=== PATIENT | female | born 1990 | race Caucasian/White ===

== ENCOUNTER 2016-04-18 12:00 | Emergency (ER) | payer OTHER ==
[~2016-04-18 12:00] MED LIST: HYDR25T PO; MULTCAP PO; NUVAMIS2 VA; XANA0.5T PO; ZOLO50TA PO
[2016-04-18] MEDS ORDERED: TRIMETHOBENZAMIDE HCL INJ 200 MG/2 ML VIAL (J3250) As Ordered ONE (12:54)
[2016-04-18 13:36] LABS: BASO % 0.3 % (0.0-1.0); EOS % 0.2 % (0.0-3.0); LARGE UNSTAINED CELL # 0.2 K/mm3 (0.0-0.4); LARGE UNSTAINED CELL % 1.3 % (0.0-4.0); LYMPH # 1.3 K/mm3 (1.5-6.5); LYMPH % 11.1 % (24.0-44.0); MEAN CORPUSCULAR HEMOGLOBIN 29.9 pg (27.0-33.0); MEAN CORPUSCULAR HGB CONC 34.2 g/dl (32.0-36.5); MEAN CORPUSCULAR VOLUME 87.4 fl (80.0-96.0); MONO # 0.3 K/mm3 (0.0-0.8); MONO % 2.2 % (0.0-5.0); NEUTROPHILS # 10.3 K/mm3 (1.8-7.7); PLATELET COUNT, AUTOMATED 335 k/mm3 (150-450); RED CELL DISTRIBUTION WIDTH 12.2 % (11.5-14.5); WHITE BLOOD COUNT 12.1 K/mm3 (4.0-10.0)
[2016-04-18 13:47] LABS: ALBUMIN 4.1 GM/DL (3.2-5.2); ALBUMIN/GLOBULIN RATIO 1.03 (1.00-1.93); ALKALINE PHOSPHATASE 48 U/L (45-117); ALT/SGPT 29 U/L (12-78); AMYLASE 65 U/L (25-115); ANION GAP 18 MEQ/L (8-16); AST/SGOT 32 U/L (15-37); BILIRUBIN,DIRECT 0.2 MG/DL (0.0-0.2); BILIRUBIN,TOTAL 0.7 MG/DL (0.2-1.0); BLOOD UREA NITROGEN 10 MG/DL (7-18); CALCIUM LEVEL 8.5 MG/DL (8.5-10.1); CARBON DIOXIDE LEVEL 19 MEQ/L (21-32); CHLORIDE LEVEL 107 MEQ/L (98-107); CREATININE FOR GFR 0.97 MG/DL (0.55-1.02); GLOMERULAR FILTRATION RATE > 60.0 (>60); GLUCOSE, FASTING 75 MG/DL (70-105); HCG, SERUM QUANTITATIVE < 1.0 MIU/ML; POTASSIUM SERUM 3.5 MEQ/L (3.5-5.1); SODIUM LEVEL 144 MEQ/L (136-145); TOTAL PROTEIN 8.1 GM/DL (6.4-8.2)
--- NOTE | 2016-04-18 15:02 | EDDOCDS ---
Nurse's Notes [facility] Name: Dania Batres Age: 25 yrs Sex: Female : 1990 Arrival Date: 04/18/2016 Time: 12:00 Bed I4 / M4 Private MD: Jill Garcia FNP Diagnosis: Nausea with vomiting, unspecified;Diarrhea, unspecified Presentation: 04/18 12:13 Presenting complaint: Patient states: lots of puking since 6am. my guts hurts- pain srm started after vomiting. emesis is brown in color. symptoms actually started Thursday went away and returned. Adult Sepsis Screening: The patient does not have new or worsening altered mentation. Patient's respiratory rate is less than 22. Systolic blood pressure is greater than 100. Patient has a qSOFA score of 0- Negative Sepsis Screen. Suicide/Homicide risk assessment- the patient denies having any suicidal and/or homicidal ideations and does not present with any other emotional, behavioral or mental health complaints. Status: Patient is not a banking services advisor or dependent. Transition of care: patient was not received from another setting of care. 12:13 Acuity: MELANY Level 3 srm 12:13 Method Of Arrival: Walkin/Carried/Asstd srm Triage Assessment: 12:15 General: Appears uncomfortable, Behavior is appropriate for age, cooperative. Pain: srm Pain currently is 6 out of 10 on a pain scale. HIV screening NA for this visit Offered previously. 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 Celexa Unknown Oral once daily 2. NuvaRing 0.12-0.015 mg/24 hr vaginal ring 1 vaginal ring once moly - PMHx: Anxiety; Depression; - PSHx: wisdom teeth; - Social history: Smoking status: Patient states was never smoker of tobacco. No barriers to communication noted, The patient speaks fluent Tongan, Speaks appropriately for age. - Family history: Not pertinent. - : The pt / caregiver states he / she is not on anticoagulants. Home medication list is obtained from the patient. - Exposure Risk Screening:: None identified. Screenin:49 Screening information is obtained from the patient. Fall risk: No risks identified. kc3 Assistance ADL's: requires no assistance with activities of daily living. Abuse/DV Screen: The patient / caregiver reports he/she is: not in a situation that causes fear, pain or injury. Nutritional screening: No deficits noted. home support is adequate. 15:00 Advance Directives: Currently, there is no health care proxy. kc3 Assessment: 12:48 General: Appears ill, Behavior is appropriate for age, cooperative. Pain: Location: kc3 abdomen. Neurological: Level of Consciousness is awake, alert, obeys commands, Oriented to person, place, time. Respiratory: Respiratory effort is even, unlabored. GI: Abdomen is flat, Pt is actively vomiting undigested food, Reports diarrhea, nausea, vomiting. Derm: Skin is pink, warm & dry. Musculoskeletal: Circulation, motion, and sensation intact. 14:36 General: Appears reluctantly produced urine specimen. PO fluids initiated and consumed jmk readily without vomiting. Strongly encouraged small frequent amounts of clear liquids ..sips only. appears NAD. ambulated with steady gait. Immature presentation.. 14:59 General: Appears in no apparent distress, comfortable, Behavior is appropriate for age, kc3 cooperative. Neurological: Level of Consciousness is awake, alert, obeys commands, Oriented to person, place, time. Respiratory: Respiratory effort is even, unlabored. GI: Bowel sounds present X 4 quads. Abd is soft and non tender Abd is soft. Derm: Skin is pink, warm & dry. Musculoskeletal: Circulation, motion, and sensation intact. Vital Signs: 12:02 BP 151 / 69; Pulse 92; Resp 18; Temp 98.0; Pulse Ox 99% on R/A; Weight 58.97 kg (R); ct3 Height 5 ft. 6 in. (167.64 cm) (R); Pain 6/10; 14:59 BP 107 / 57; Pulse 78; Resp 18; Temp 97.8(O); Pulse Ox 100% on R/A; Pain 0/10; jb5 12:02 Body Mass Index 20.98 (58.97 kg, 167.64 cm) ct3 Vitals: 12:02 Log In Time: April 18, 2016 at 11:59. ct3 ED Course: 12:01 Patient visited by Donna Chacko PCA. ct3 12:01 Jill Garcia is Private Physician. ct3 12:01 Patient moved to Waiting ct3 12:03 Patient moved to Pre RCE ct3 12:14 Triage Initiated srm 12:30 Patient moved to Triage 1 dy 12:32 Patient moved to I4 / M4 dy 12:35 Patient visited by Lore Berg PCA. jb5 12:44 Yasmeen Hoff PA-C is PHCP. dt4 12:44 Shantal Oliva MD is Attending Physician. dt4 12:44 Patient visited by Yasmeen Hoff PA-C. dt4 12:49 Inserted saline lock: 20 gauge in right antecubital area and blood collected. The kc3 patient tolerated the procedure well. Labs drawn. (by ED staff). Sent per order to lab. 12:50 The patient / caregiver is instructed regarding the plan of care and ED course. kc3 13:00 Hcg, Serum Quantitative Sent. jmk 13:00 Amylase Sent. jmk 13:00 Basic Metabolic Profile Sent. jmk 13:00 CBC with Diff Sent. jmk 13:00 Lipase Sent. jmk 13:00 Liver Profile Sent. jmk 13:06 [facility] Payment Agreement was scanned into [employer] and attached to record. lg 14:02 Patient visited by Kerry Rogers. nb2 14:25 Urinalysis Sent. nb2 14:25 Urine Culture Sent. nb2 14:59 Patient visited by Lore Berg PCA. jb5 15:00 Discontinued IV lock intact, bleeding controlled, pressure dressing applied, No kc3 redness/swelling at site. No procedures done that require assistance. Administered Medications: 12:47 Drug: NS 0.9% 1000 ml [sodium chloride 0.9 % intravenous solution] Route: IV; Rate: kc3 bolus; Site: right antecubital; 12:57 Drug: Tigan 200 mg [Tigan 100 mg/mL intramuscular solution (2 mL)] Route: IM; Site: k right gluteus; 14:35 Drug: NS 0.9% 500 ml Route: IV; Rate: bolus; Site: right antecubital; k Order Results: Lab Order: Amylase; SPEC'M 04/18/16 12:46 Test: AMYLASE; Value: 65; Range: 25-115; Units: U/L; Status: F Lab Order: Basic Metabolic Profile; SPEC'M 04/18/16 12:46 Test: GLUCOSE, FASTING; Value: 75; Range: 70-105; Units: MG/DL; Status: F Test: BLOOD UREA NITROGEN; Value: 10; Range: 7-18; Units: MG/DL; Status: F Test: CREATININE FOR GFR; Value: 0.97; Range: 0.55-1.02; Units: MG/DL; Status: F Test: GLOMERULAR FILTRATION RATE; Value: > 60.0; Range: >60; Status: F Test: SODIUM LEVEL; Value: 144; Range: 136-145; Units: MEQ/L; Status: F Test: POTASSIUM SERUM; Value: 3.5; Range: 3.5-5.1; Units: MEQ/L; Status: F Test: CHLORIDE LEVEL; Value: 107; Range: 98-107; Units: MEQ/L; Status: F Test: CARBON DIOXIDE LEVEL; Value: 19; Range: 21-32; Abnormal: Below low normal; Units: MEQ/L; Status: F Test: ANION GAP; Value: 18; Range: 8-16; Abnormal: Above high normal; Units: MEQ/L; Status: F Test: CALCIUM LEVEL; Value: 8.5; Range: 8.5-10.1; Units: MG/DL; Status: F Test Note: ; Units are mL/min/1.73 m2 Chronic Kidney Disease Staging per NKF: Stage I & II GFR >=60 Normal to Mildly Decreased Stage III GFR 30-59 Moderately Decreased Stage IV GFR 15-29 Severely Decreased Stage V GFR <15 Very Little GFR Left ESRD GFR <15 on PENSION EXAMINER Lab Order: CBC with Diff; SPEC'M 04/18/16 12:46 Test: WHITE BLOOD COUNT; Value: 12.1; Range: 4.0-10.0; Abnormal: Above high normal; Units: K/mm3; Status: F Test: RED BLOOD COUNT; Value: 4.62; Range: 4.00-5.40; Units: M/mm3; Status: F Test: HEMOGLOBIN; Value: 13.8; Range: 12.0-16.0; Units: g/dl; Status: F Test: HEMATOCRIT; Value: 40.4; Range: 36.0-47.0; Units: %; Status: F Test: MEAN CORPUSCULAR VOLUME; Value: 87.4; Range: 80.0-96.0; Units: fl; Status: F Test: MEAN CORPUSCULAR HEMOGLOBIN; Value: 29.9; Range: 27.0-33.0; Units: pg; Status: F Test: MEAN CORPUSCULAR HGB CONC; Value: 34.2; Range: 32.0-36.5; Units: g/dl; Status: F Test: RED CELL DISTRIBUTION WIDTH; Value: 12.2; Range: 11.5-14.5; Units: %; Status: F Test: PLATELET COUNT, AUTOMATED; Value: 335; Range: 150-450; Units: k/mm3; Status: F Test: NEUTROPHILS %; Value: 85.0; Range: 36.0-66.0; Abnormal: Above high normal; Units: %; Status: F Test: LYMPH %; Value: 11.1; Range: 24.0-44.0; Abnormal: Below low normal; Units: %; Status: F Test: MONO %; Value: 2.2; Range: 0.0-5.0; Units: %; Status: F Test: EOS %; Value: 0.2; Range: 0.0-3.0; Units: %; Status: F Test: BASO %; Value: 0.3; Range: 0.0-1.0; Units: %; Status: F Test: LARGE UNSTAINED CELL %; Value: 1.3; Range: 0.0-4.0; Units: %; Status: F Test: NEUTROPHILS #; Value: 10.3; Range: 1.8-7.7; Abnormal: Above high normal; Units: K/mm3; Status: F Test: LYMPH #; Value: 1.3; Range: 1.5-6.5; Abnormal: Below low normal; Units: K/mm3; Status: F Test: MONO #; Value: 0.3; Range: 0.0-0.8; Units: K/mm3; Status: F Test: EOS #; Value: 0.0; Range: 0.0-0.50; Units: K/mm3; Status: F Test: BASO #; Value: 0.0; Range: 0.0-0.2; Units: K/mm3; Status: F Test: LARGE UNSTAINED CELL #; Value: 0.2; Range: 0.0-0.4; Units: K/mm3; Status: F Lab Order: Lipase; SPEC'M 04/18/16 12:46 Test: LIPASE; Value: 138; Range: 73-393; Units: U/L; Status: F Lab Order: Liver Profile; SPEC' 04/18/16 12:46 Test: AST/SGOT; Value: 32; Range: 15-37; Units: U/L; Status: F Test: ALT/SGPT; Value: 29; Range: 12-78; Units: U/L; Status: F Test: ALKALINE PHOSPHATASE; Value: 48; Range: 45-117; Units: U/L; Status: F Test: BILIRUBIN,TOTAL; Value: 0.7; Range: 0.2-1.0; Units: MG/DL; Status: F Test: BILIRUBIN,DIRECT; Value: 0.2; Range: 0.0-0.2; Units: MG/DL; Status: F Test: TOTAL PROTEIN; Value: 8.1; Range: 6.4-8.2; Units: GM/DL; Status: F Test: ALBUMIN; Value: 4.1; Range: 3.2-5.2; Units: GM/DL; Status: F Test: ALBUMIN/GLOBULIN RATIO; Value: 1.03; Range: 1.00-1.93; Status: F Lab Order: Urinalysis; [facility]' 04/18/16 14:23 Test: APPEARANCE, URINE; Value: CLEAR; Range: CLEAR; Status: F Test: COLOR, URINE; Value: YELLOW; Range: YELLOW; Status: F Test: PH,URINE; Value: 5.0; Range: 5.0-9.0; Units: UNITS; Status: F Test: SPECIFIC GRAVITY URINE AUTO; Value: 1.021; Range: 1.002-1.035; Status: F Test: PROTEIN, URINE AUTO; Value: 1+; Range: NEGATIVE; Abnormal: Above high normal; Units: mg/dL; Status: F Test: GLUCOSE, URINE (UA) AUTO; Value: NEGATIVE; Range: NEGATIVE; Units: mg/dL; Status: F Test: KETONE, URINE AUTO; Value: 2+; Range: NEGATIVE; Abnormal: Above high normal; Units: mg/dL; Status: F Test: UROBILINOGEN, URINE AUTO; Value: 0.2; Range: 0.0-2.0; Units: mg/dL; Status: F Test: BILIRUBIN, URINE AUTO; Value: NEGATIVE; Range: NEGATIVE; Status: F Test: NITRITE, URINE AUTO; Value: NEGATIVE; Range: NEGATIVE; Status: F Test: LEUKOCYTE ESTERASE, URINE AUTO; Value: NEGATIVE; Range: NEGATIVE; Status: F Test: BLOOD, URINE BLOOD; Value: 1+; Range: NEGATIVE; Abnormal: Above high normal; Status: F Test: WBC, URINE AUTO; Value: 1; Range: 0-3; Units: /HPF; Status: F Test: RBC, URINE AUTO; Value: 2; Range: 0-3; Units: /HPF; Status: F Test: BACTERIA, URINE AUTO; Value: NEGATIVE; Range: NEGATIVE; Status: F Test: SQUAMOUS EPITHELIAL CELL UR AU; Value: 1; Range: 0-6; Units: /HPF; Status: F Test: MUCUS, URINE; Value: SMALL; Range: NEGATIVE; Status: F Test: HYALINE CAST, URINE AUTO; Value: 0; Range: 0-1; Units: /LPF; Status: F Lab Order: Hcg, Serum Quantitative; SPEC'M 04/18/16 12:46 Test: HCG, SERUM QUANTITATIVE; Value: < 1.0; Units: MIU/ML; Status: F Test Note: ; GESTATIONAL AGE APPROXIMATE HCG RANGE (MIU/ML) 0.2-1 WEEK 5-50 1-2 WEEKS 50-500 2-3 WEEKS 100-5,000 3-4 WEEKS 500-10,000 4-5 WEEKS 1,000-50,000 5-6 WEEKS 10,000-100,000 6-8 WEEKS 15,000-200,000 2-3 MONTHS 10,000-100,000 NON FEMALES LESS THAN 3.0 Patient samples may contain human heterophilic antibodies that could react with immunoassays to give falsely elevated or depressed results. This assay has been designed to minimize interference from heterophilic antibodies. Elevated hCG levels have also been associated with trophoblastic disease and nontrophoblastic neoplasms. The possibility of having these diseases should be considered before a diagnosis of is made. This test is not intended for use as a surrogate marker for aiding in the diagnosis or monitoring the treatment of cancer patients. [employer] [place] methodology. Outcome: 14:51 Discharge ordered by Provider. dt4 15:00 Discharge Assessment: Patient awake, alert and oriented x 3. No cognitive and/or kc3 functional deficits noted. Patient verbalized understanding of disposition instructions. patient administered narcotics - no. The following High Risk Discharge criteria are identified: None. Condition: stable. Discharge instructions given to patient, Instructed on discharge instructions, follow up and referral plans. medication usage, Demonstrated understanding of instructions, medications, Pt was receptive of discharge instructions/ teaching. Prescriptions given X 1. Property :Personal belongings accompany Pt. 15:01 No special radiology studies were completed. kc3 15:01 Patient left the ED. kc3 Signatures: Juvenal Olmedo,RN RN Kenya Jimenes, RN RN Roberta Bragg, Miguel Reg lg Tucker Grimm, RN RN Lore Dixon, SUPERVISOR LABOR GANG SUPERVISOR LABOR GANG jb5 Donna Chacko, SUPERVISOR LABOR GANG SUPERVISOR LABOR GANG ct3 Yasmeen Hoff, PA-C PA-C dt4 Marcelina De Los Santos,RN RN kc3 Kerry Rogers nb2 Corrections: (The following items were deleted from the chart) 12:48 12:47 NS 0.9% 1000 ml IV at bolus in left antecubital kc3 kc3 MTDD
--- NOTE | 2016-04-18 15:02 | EDDOCDS ---
Physician Documentation [facility] Name: Dania Batres Age: 25 yrs Sex: Female : 1990 Arrival Date: 04/18/2016 Time: 12:00 Bed I4 / M4 Private MD: Jill Garcia FNP Disposition: 04/18/16 14:51 Discharged to Home/Self Care. Impression: Nausea with vomiting, unspecified, Diarrhea, unspecified. - Condition is Stable. - Discharge Instructions: Diarrhea, Nausea and Vomiting. - Prescriptions for Tigan 300 mg Oral Capsule - take 1 capsule by ORAL route every 12 hours As needed; 30 capsule. - Medication Reconciliation, Local Pharmacy Hours form. - Follow up: Emergency Department; When: As needed; Reason: Worsening of conditions. Follow up: Private Physician; When: 2 - 3 days; Reason: Wound/Symptom Recheck, Recheck today's complaints, Continuance of care. - Problem is new. - Symptoms have improved. Historical: - Allergies: no known allergies; - Home Meds: 1. Celexa Unknown Oral once daily 2. NuvaRing 0.12-0.015 mg/24 hr vaginal ring 1 vaginal ring once moly - PMHx: Anxiety; Depression; - PSHx: wisdom teeth; - Social history: Smoking status: Patient states was never smoker of tobacco. No barriers to communication noted, The patient speaks fluent Sierra Leonean, Speaks appropriately for age. - Family history: Not pertinent. - : The pt / caregiver states he / she is not on anticoagulants. Home medication list is obtained from the patient. - Exposure Risk Screening:: None identified. CLINIC MGR: 04/18 12:15 LMP 03/25/2016 srm Vital Signs: 12:02 BP 151 / 69; Pulse 92; Resp 18; Temp 98.0; Pulse Ox 99% on R/A; Weight 58.97 kg / ct3 130.01 lbs (R); Height 5 ft. 6 in. (167.64 cm) (R); Pain 6/10; 14:59 BP 107 / 57; Pulse 78; Resp 18; Temp 97.8(O); Pulse Ox 100% on R/A; Pain 0/10; jb5 12:02 Body Mass Index 20.98 (58.97 kg, 167.64 cm) ct3 MDM: 12:45 IV Saline Lock ordered. dt4 12:45 NS 0.9% 1000 ml IV at bolus once ordered. dt4 12:47 Tigan 200 mg IM once ordered. dt4 12:58 NOTHING BY MOUTH+DIET ordered. EDMS 12:58 Amylase Ordered. EDMS 12:58 Basic Metabolic Profile Ordered. EDMS 12:58 CBC with Diff Ordered. EDMS 12:58 Lipase Ordered. EDMS 12:58 Liver Profile Ordered. EDMS 12:58 Urinalysis Ordered. EDMS 12:58 Hcg, Serum Quantitative Ordered. EDMS 12:58 Urine Culture Ordered. EDMS 13:05 Financial registration complete. lg 13:06 [facility] Payment Agreement was scanned into [employer] and attached to record. lg 14:08 NS 0.9% 500 ml IV at bolus once ordered. dt4 Administered Medications: 12:47 Drug: NS 0.9% 1000 ml [sodium chloride 0.9 % intravenous solution] Route: IV; Rate: kc3 bolus; Site: right antecubital; 12:57 Drug: Tigan 200 mg [Tigan 100 mg/mL intramuscular solution (2 mL)] Route: IM; Site: jmk right gluteus; 14:35 Drug: NS 0.9% 500 ml Route: IV; Rate: bolus; Site: right antecubital; jmk Signatures: Dispatcher [employer] Sentry Kenya Guillory, RN Roberta Chance, Reg Reg lg Yasmeen Hoff, PA-C PA-C dt4 Marcelina De Los Santos RN RN kc3 Knapp, Jean RN jmk The chart was reviewed and I authenticate all verbal orders and agree with the evaluation and treatment provided.Attachments: 13:06 [facility] Payment Agreement lg MTDD
--- NOTE | 2016-04-20 16:01 | EDDOCDS ---
Nurse's Notes [facility] Name: Dania Batres Age: 25 yrs Sex: Female : 1990 Arrival Date: 04/18/2016 Time: 12:00 Bed I4 / M4 Private MD: Jill Garcia FNP Diagnosis: Nausea with vomiting, unspecified;Diarrhea, unspecified Presentation: 04/18 12:13 Presenting complaint: Patient states: lots of puking since 6am. my guts hurts- pain srm started after vomiting. emesis is brown in color. symptoms actually started Thursday went away and returned. Adult Sepsis Screening: The patient does not have new or worsening altered mentation. Patient's respiratory rate is less than 22. Systolic blood pressure is greater than 100. Patient has a qSOFA score of 0- Negative Sepsis Screen. Suicide/Homicide risk assessment- the patient denies having any suicidal and/or homicidal ideations and does not present with any other emotional, behavioral or mental health complaints. Status: Patient is not a nutrition services associate or dependent. Transition of care: patient was not received from another setting of care. 12:13 Acuity: MELANY Level 3 srm 12:13 Method Of Arrival: Walkin/Carried/Asstd srm Triage Assessment: 12:15 General: Appears uncomfortable, Behavior is appropriate for age, cooperative. Pain: srm Pain currently is 6 out of 10 on a pain scale. HIV screening NA for this visit Offered previously. 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 Celexa Unknown Oral once daily 2. NuvaRing 0.12-0.015 mg/24 hr vaginal ring 1 vaginal ring once moly - PMHx: Anxiety; Depression; - PSHx: wisdom teeth; - Social history: Smoking status: Patient states was never smoker of tobacco. No barriers to communication noted, The patient speaks fluent Iranian, Speaks appropriately for age. - Family history: Not pertinent. - : The pt / caregiver states he / she is not on anticoagulants. Home medication list is obtained from the patient. - Exposure Risk Screening:: None identified. Screenin:49 Screening information is obtained from the patient. Fall risk: No risks identified. kc3 Assistance ADL's: requires no assistance with activities of daily living. Abuse/DV Screen: The patient / caregiver reports he/she is: not in a situation that causes fear, pain or injury. Nutritional screening: No deficits noted. home support is adequate. 15:00 Advance Directives: Currently, there is no health care proxy. kc3 Assessment: 12:48 General: Appears ill, Behavior is appropriate for age, cooperative. Pain: Location: kc3 abdomen. Neurological: Level of Consciousness is awake, alert, obeys commands, Oriented to person, place, time. Respiratory: Respiratory effort is even, unlabored. GI: Abdomen is flat, Pt is actively vomiting undigested food, Reports diarrhea, nausea, vomiting. Derm: Skin is pink, warm & dry. Musculoskeletal: Circulation, motion, and sensation intact. 14:36 General: Appears reluctantly produced urine specimen. PO fluids initiated and consumed jmk readily without vomiting. Strongly encouraged small frequent amounts of clear liquids ..sips only. appears NAD. ambulated with steady gait. Immature presentation.. 14:59 General: Appears in no apparent distress, comfortable, Behavior is appropriate for age, kc3 cooperative. Neurological: Level of Consciousness is awake, alert, obeys commands, Oriented to person, place, time. Respiratory: Respiratory effort is even, unlabored. GI: Bowel sounds present X 4 quads. Abd is soft and non tender Abd is soft. Derm: Skin is pink, warm & dry. Musculoskeletal: Circulation, motion, and sensation intact. Vital Signs: 12:02 BP 151 / 69; Pulse 92; Resp 18; Temp 98.0; Pulse Ox 99% on R/A; Weight 58.97 kg (R); ct3 Height 5 ft. 6 in. (167.64 cm) (R); Pain 6/10; 14:59 BP 107 / 57; Pulse 78; Resp 18; Temp 97.8(O); Pulse Ox 100% on R/A; Pain 0/10; jb5 12:02 Body Mass Index 20.98 (58.97 kg, 167.64 cm) ct3 Vitals: 12:02 Log In Time: April 18, 2016 at 11:59. ct3 ED Course: 12:01 Patient visited by Donna Chacko PCA. ct3 12:01 Jill Garcia is Private Physician. ct3 12:01 Patient moved to Waiting ct3 12:03 Patient moved to Pre RCE ct3 12:14 Triage Initiated srm 12:30 Patient moved to Triage 1 dy 12:32 Patient moved to I4 / M4 dy 12:35 Patient visited by Lore Berg PCA. jb5 12:44 Yasmeen Hoff PA-C is PHCP. dt4 12:44 Shantal Oliva MD is Attending Physician. dt4 12:44 Patient visited by Yasmeen Hoff PA-C. dt4 12:49 Inserted saline lock: 20 gauge in right antecubital area and blood collected. The kc3 patient tolerated the procedure well. Labs drawn. (by ED staff). Sent per order to lab. 12:50 The patient / caregiver is instructed regarding the plan of care and ED course. kc3 13:00 Hcg, Serum Quantitative Sent. jmk 13:00 Amylase Sent. jmk 13:00 Basic Metabolic Profile Sent. jmk 13:00 CBC with Diff Sent. jmk 13:00 Lipase Sent. jmk 13:00 Liver Profile Sent. jmk 13:06 [facility] Payment Agreement was scanned into [employer] and attached to record. lg 14:02 Patient visited by Kerry Rogers. nb2 14:25 Urinalysis Sent. nb2 14:25 Urine Culture Sent. nb2 14:59 Patient visited by Lore Berg PCA. jb5 15:00 Discontinued IV lock intact, bleeding controlled, pressure dressing applied, No kc3 redness/swelling at site. No procedures done that require assistance. 04/19 09:22 T-Sheet-- Draft Copy was scanned into [employer] and attached to record. gb Administered Medications: 04/18 12:47 Drug: NS 0.9% 1000 ml [sodium chloride 0.9 % intravenous solution] Route: IV; Rate: kc3 bolus; Site: right antecubital; 12:57 Drug: Tigan 200 mg [Tigan 100 mg/mL intramuscular solution (2 mL)] Route: IM; Site: jmk right gluteus; 14:35 Drug: NS 0.9% 500 ml Route: IV; Rate: bolus; Site: right antecubital; jmk Order Results: Lab Order: Amylase; SPEC'M 04/18/16 12:46 Test: AMYLASE; Value: 65; Range: 25-115; Units: U/L; Status: F Lab Order: Basic Metabolic Profile; SPEC'M 04/18/16 12:46 Test: GLUCOSE, FASTING; Value: 75; Range: 70-105; Units: MG/DL; Status: F Test: BLOOD UREA NITROGEN; Value: 10; Range: 7-18; Units: MG/DL; Status: F Test: CREATININE FOR GFR; Value: 0.97; Range: 0.55-1.02; Units: MG/DL; Status: F Test: GLOMERULAR FILTRATION RATE; Value: > 60.0; Range: >60; Status: F Test: SODIUM LEVEL; Value: 144; Range: 136-145; Units: MEQ/L; Status: F Test: POTASSIUM SERUM; Value: 3.5; Range: 3.5-5.1; Units: MEQ/L; Status: F Test: CHLORIDE LEVEL; Value: 107; Range: 98-107; Units: MEQ/L; Status: F Test: CARBON DIOXIDE LEVEL; Value: 19; Range: 21-32; Abnormal: Below low normal; Units: MEQ/L; Status: F Test: ANION GAP; Value: 18; Range: 8-16; Abnormal: Above high normal; Units: MEQ/L; Status: F Test: CALCIUM LEVEL; Value: 8.5; Range: 8.5-10.1; Units: MG/DL; Status: F Test Note: ; Units are mL/min/1.73 m2 Chronic Kidney Disease Staging per NKF: Stage I & II GFR >=60 Normal to Mildly Decreased Stage III GFR 30-59 Moderately Decreased Stage IV GFR 15-29 Severely Decreased Stage V GFR <15 Very Little GFR Left ESRD GFR <15 on HYDROPULPER OPERATOR Lab Order: CBC with Diff; SPEC'M 04/18/16 12:46 Test: WHITE BLOOD COUNT; Value: 12.1; Range: 4.0-10.0; Abnormal: Above high normal; Units: K/mm3; Status: F Test: RED BLOOD COUNT; Value: 4.62; Range: 4.00-5.40; Units: M/mm3; Status: F Test: HEMOGLOBIN; Value: 13.8; Range: 12.0-16.0; Units: g/dl; Status: F Test: HEMATOCRIT; Value: 40.4; Range: 36.0-47.0; Units: %; Status: F Test: MEAN CORPUSCULAR VOLUME; Value: 87.4; Range: 80.0-96.0; Units: fl; Status: F Test: MEAN CORPUSCULAR HEMOGLOBIN; Value: 29.9; Range: 27.0-33.0; Units: pg; Status: F Test: MEAN CORPUSCULAR HGB CONC; Value: 34.2; Range: 32.0-36.5; Units: g/dl; Status: F Test: RED CELL DISTRIBUTION WIDTH; Value: 12.2; Range: 11.5-14.5; Units: %; Status: F Test: PLATELET COUNT, AUTOMATED; Value: 335; Range: 150-450; Units: k/mm3; Status: F Test: NEUTROPHILS %; Value: 85.0; Range: 36.0-66.0; Abnormal: Above high normal; Units: %; Status: F Test: LYMPH %; Value: 11.1; Range: 24.0-44.0; Abnormal: Below low normal; Units: %; Status: F Test: MONO %; Value: 2.2; Range: 0.0-5.0; Units: %; Status: F Test: EOS %; Value: 0.2; Range: 0.0-3.0; Units: %; Status: F Test: BASO %; Value: 0.3; Range: 0.0-1.0; Units: %; Status: F Test: LARGE UNSTAINED CELL %; Value: 1.3; Range: 0.0-4.0; Units: %; Status: F Test: NEUTROPHILS #; Value: 10.3; Range: 1.8-7.7; Abnormal: Above high normal; Units: K/mm3; Status: F Test: LYMPH #; Value: 1.3; Range: 1.5-6.5; Abnormal: Below low normal; Units: K/mm3; Status: F Test: MONO #; Value: 0.3; Range: 0.0-0.8; Units: K/mm3; Status: F Test: EOS #; Value: 0.0; Range: 0.0-0.50; Units: K/mm3; Status: F Test: BASO #; Value: 0.0; Range: 0.0-0.2; Units: K/mm3; Status: F Test: LARGE UNSTAINED CELL #; Value: 0.2; Range: 0.0-0.4; Units: K/mm3; Status: F Lab Order: Lipase; [facility]' 04/18/16 12:46 Test: LIPASE; Value: 138; Range: 73-393; Units: U/L; Status: F Lab Order: Liver Profile; SPEC' 04/18/16 12:46 Test: AST/SGOT; Value: 32; Range: 15-37; Units: U/L; Status: F Test: ALT/SGPT; Value: 29; Range: 12-78; Units: U/L; Status: F Test: ALKALINE PHOSPHATASE; Value: 48; Range: 45-117; Units: U/L; Status: F Test: BILIRUBIN,TOTAL; Value: 0.7; Range: 0.2-1.0; Units: MG/DL; Status: F Test: BILIRUBIN,DIRECT; Value: 0.2; Range: 0.0-0.2; Units: MG/DL; Status: F Test: TOTAL PROTEIN; Value: 8.1; Range: 6.4-8.2; Units: GM/DL; Status: F Test: ALBUMIN; Value: 4.1; Range: 3.2-5.2; Units: GM/DL; Status: F Test: ALBUMIN/GLOBULIN RATIO; Value: 1.03; Range: 1.00-1.93; Status: F Lab Order: Urinalysis; [facility]' 04/18/16 14:23 Test: APPEARANCE, URINE; Value: CLEAR; Range: CLEAR; Status: F Test: COLOR, URINE; Value: YELLOW; Range: YELLOW; Status: F Test: PH,URINE; Value: 5.0; Range: 5.0-9.0; Units: UNITS; Status: F Test: SPECIFIC GRAVITY URINE AUTO; Value: 1.021; Range: 1.002-1.035; Status: F Test: PROTEIN, URINE AUTO; Value: 1+; Range: NEGATIVE; Abnormal: Above high normal; Units: mg/dL; Status: F Test: GLUCOSE, URINE (UA) AUTO; Value: NEGATIVE; Range: NEGATIVE; Units: mg/dL; Status: F Test: KETONE, URINE AUTO; Value: 2+; Range: NEGATIVE; Abnormal: Above high normal; Units: mg/dL; Status: F Test: UROBILINOGEN, URINE AUTO; Value: 0.2; Range: 0.0-2.0; Units: mg/dL; Status: F Test: BILIRUBIN, URINE AUTO; Value: NEGATIVE; Range: NEGATIVE; Status: F Test: NITRITE, URINE AUTO; Value: NEGATIVE; Range: NEGATIVE; Status: F Test: LEUKOCYTE ESTERASE, URINE AUTO; Value: NEGATIVE; Range: NEGATIVE; Status: F Test: BLOOD, URINE BLOOD; Value: 1+; Range: NEGATIVE; Abnormal: Above high normal; Status: F Test: WBC, URINE AUTO; Value: 1; Range: 0-3; Units: /HPF; Status: F Test: RBC, URINE AUTO; Value: 2; Range: 0-3; Units: /HPF; Status: F Test: BACTERIA, URINE AUTO; Value: NEGATIVE; Range: NEGATIVE; Status: F Test: SQUAMOUS EPITHELIAL CELL UR AU; Value: 1; Range: 0-6; Units: /HPF; Status: F Test: MUCUS, URINE; Value: SMALL; Range: NEGATIVE; Status: F Test: HYALINE CAST, URINE AUTO; Value: 0; Range: 0-1; Units: /LPF; Status: F Lab Order: Urine Culture; [facility]' 04/18/16 14:23 Test: URINE CULTURE; Value: URINE CULTURE RESULT NO GROWTH CLINICAL SIGNIFICANCE 1 ORGANISM; Status: F Lab Order: Hcg, Serum Quantitative; SPEC' 04/18/16 12:46 Test: HCG, SERUM QUANTITATIVE; Value: < 1.0; Units: MIU/ML; Status: F Test Note: ; GESTATIONAL AGE APPROXIMATE HCG RANGE (MIU/ML) 0.2-1 WEEK 5-50 1-2 WEEKS 50-500 2-3 WEEKS 100-5,000 3-4 WEEKS 500-10,000 4-5 WEEKS 1,000-50,000 5-6 WEEKS 10,000-100,000 6-8 WEEKS 15,000-200,000 2-3 MONTHS 10,000-100,000 NON FEMALES LESS THAN 3.0 Patient samples may contain human heterophilic antibodies that could react with immunoassays to give falsely elevated or depressed results. This assay has been designed to minimize interference from heterophilic antibodies. Elevated hCG levels have also been associated with trophoblastic disease and nontrophoblastic neoplasms. The possibility of having these diseases should be considered before a diagnosis of is made. This test is not intended for use as a surrogate marker for aiding in the diagnosis or monitoring the treatment of cancer patients. [employer] [place] methodology. Outcome: 14:51 Discharge ordered by Provider. dt4 15:00 Discharge Assessment: Patient awake, alert and oriented x 3. No cognitive and/or kc3 functional deficits noted. Patient verbalized understanding of disposition instructions. patient administered narcotics - no. The following High Risk Discharge criteria are identified: None. Condition: stable. Discharge instructions given to patient, Instructed on discharge instructions, follow up and referral plans. medication usage, Demonstrated understanding of instructions, medications, Pt was receptive of discharge instructions/ teaching. Prescriptions given X 1. Property :Personal belongings accompany Pt. 15:01 No special radiology studies were completed. kc3 15:01 Patient left the ED. kc3 Signatures: Juvenal Olmedo,RN RN Kenya Jimenes, RN RN [facility] Esther, Stefany, Reg Reg gb Roberta Farrell, Reg Reg lg Tucker Grimm, RN RN Lore Dixon, CHAIRLIFT OPERATOR CHAIRLIFT OPERATOR jb5 Donna Chacko, CHAIRLIFT OPERATOR CHAIRLIFT OPERATOR ct3 Yasmeen Hoff, PA-C PA-C dt4 Marcelina De Los Santos,RN RN kc3 Kerry Rogers nb2 Corrections: (The following items were deleted from the chart) 12:48 12:47 NS 0.9% 1000 ml IV at bolus in left antecubital kc3 kc3 Chart Complete MTDD
--- NOTE | 2016-04-20 16:01 | EDDOCDS ---
Physician Documentation [facility] Name: Dania Batres Age: 25 yrs Sex: Female : 1990 Arrival Date: 04/18/2016 Time: 12:00 Bed I4 / M4 Private MD: Jill Garcia FNP Disposition: 04/18/16 14:51 Discharged to Home/Self Care. Impression: Nausea with vomiting, unspecified, Diarrhea, unspecified. - Condition is Stable. - Discharge Instructions: Diarrhea, Nausea and Vomiting. - Prescriptions for Tigan 300 mg Oral Capsule - take 1 capsule by ORAL route every 12 hours As needed; 30 capsule. - Medication Reconciliation, Local Pharmacy Hours form. - Follow up: Emergency Department; When: As needed; Reason: Worsening of conditions. Follow up: Private Physician; When: 2 - 3 days; Reason: Wound/Symptom Recheck, Recheck today's complaints, Continuance of care. - Problem is new. - Symptoms have improved. Historical: - Allergies: no known allergies; - Home Meds: 1. Celexa Unknown Oral once daily 2. NuvaRing 0.12-0.015 mg/24 hr vaginal ring 1 vaginal ring once moly - PMHx: Anxiety; Depression; - PSHx: wisdom teeth; - Social history: Smoking status: Patient states was never smoker of tobacco. No barriers to communication noted, The patient speaks fluent Syrian, Speaks appropriately for age. - Family history: Not pertinent. - : The pt / caregiver states he / she is not on anticoagulants. Home medication list is obtained from the patient. - Exposure Risk Screening:: None identified. HR RECRUITER: 04/18 12:15 LMP 03/25/2016 srm Vital Signs: 12:02 BP 151 / 69; Pulse 92; Resp 18; Temp 98.0; Pulse Ox 99% on R/A; Weight 58.97 kg / ct3 130.01 lbs (R); Height 5 ft. 6 in. (167.64 cm) (R); Pain 6/10; 14:59 BP 107 / 57; Pulse 78; Resp 18; Temp 97.8(O); Pulse Ox 100% on R/A; Pain 0/10; jb5 12:02 Body Mass Index 20.98 (58.97 kg, 167.64 cm) ct3 MDM: 12:45 IV Saline Lock ordered. dt4 12:45 NS 0.9% 1000 ml IV at bolus once ordered. dt4 12:47 Tigan 200 mg IM once ordered. dt4 12:58 NOTHING BY MOUTH+DIET ordered. EDMS 12:58 Amylase Ordered. EDMS 12:58 Basic Metabolic Profile Ordered. EDMS 12:58 CBC with Diff Ordered. EDMS 12:58 Lipase Ordered. EDMS 12:58 Liver Profile Ordered. EDMS 12:58 Urinalysis Ordered. EDMS 12:58 Hcg, Serum Quantitative Ordered. EDMS 12:58 Urine Culture Ordered. EDMS 13:05 Financial registration complete. lg 13:06 [facility] Payment Agreement was scanned into [employer] and attached to record. lg 14:08 NS 0.9% 500 ml IV at bolus once ordered. dt4 04/19 09:22 T-Sheet-- Draft Copy was scanned into [employer] and attached to record. gb Administered Medications: 04/18 12:47 Drug: NS 0.9% 1000 ml [sodium chloride 0.9 % intravenous solution] Route: IV; Rate: kc3 bolus; Site: right antecubital; 12:57 Drug: Tigan 200 mg [Tigan 100 mg/mL intramuscular solution (2 mL)] Route: IM; Site: jmk right gluteus; 14:35 Drug: NS 0.9% 500 ml Route: IV; Rate: bolus; Site: right antecubital; jmk Signatures: Dispatcher [employer] EDMS Kenya Richard, RAN TONG [facility] Stefany Santana, Reg Reg gb Roberta Farrell, Reg Reg lg Yasmeen Hoff, PA-Juan Manuel PA-C dt4 Marcelina De Los Santos RN RN kc3 Juvenal Olmedo RN The chart was reviewed and I authenticate all verbal orders and agree with the evaluation and treatment provided.Attachments: 13:06 [facility] Payment Agreement lg 04/19 09:22 T-Sheet-- Draft Copy gb Chart Complete MTDD
--- NOTE | 2016-04-20 16:01 | EDDOCDS ---
Physician Documentation [facility] Name: Dania Batres Age: 25 yrs Sex: Female : 1990 Arrival Date: 04/18/2016 Time: 12:00 Bed I4 / M4 Private MD: Jill Garcia FNP Disposition: 04/18/16 14:51 Discharged to Home/Self Care. Impression: Nausea with vomiting, unspecified, Diarrhea, unspecified. - Condition is Stable. - Discharge Instructions: Diarrhea, Nausea and Vomiting. - Prescriptions for Tigan 300 mg Oral Capsule - take 1 capsule by ORAL route every 12 hours As needed; 30 capsule. - Medication Reconciliation, Local Pharmacy Hours form. - Follow up: Emergency Department; When: As needed; Reason: Worsening of conditions. Follow up: Private Physician; When: 2 - 3 days; Reason: Wound/Symptom Recheck, Recheck today's complaints, Continuance of care. - Problem is new. - Symptoms have improved. Historical: - Allergies: no known allergies; - Home Meds: 1. Celexa Unknown Oral once daily 2. NuvaRing 0.12-0.015 mg/24 hr vaginal ring 1 vaginal ring once moly - PMHx: Anxiety; Depression; - PSHx: wisdom teeth; - Social history: Smoking status: Patient states was never smoker of tobacco. No barriers to communication noted, The patient speaks fluent [place], Speaks appropriately for age. - Family history: Not pertinent. - : The pt / caregiver states he / she is not on anticoagulants. Home medication list is obtained from the patient. - Exposure Risk Screening:: None identified. TRANSPORTATION DRIVER: 04/18 12:15 LMP 03/25/2016 srm Vital Signs: 12:02 BP 151 / 69; Pulse 92; Resp 18; Temp 98.0; Pulse Ox 99% on R/A; Weight 58.97 kg / ct3 130.01 lbs (R); Height 5 ft. 6 in. (167.64 cm) (R); Pain 6/10; 14:59 BP 107 / 57; Pulse 78; Resp 18; Temp 97.8(O); Pulse Ox 100% on R/A; Pain 0/10; jb5 12:02 Body Mass Index 20.98 (58.97 kg, 167.64 cm) ct3 MDM: 12:45 IV Saline Lock ordered. dt4 12:45 NS 0.9% 1000 ml IV at bolus once ordered. dt4 12:47 Tigan 200 mg IM once ordered. dt4 12:58 NOTHING BY MOUTH+DIET ordered. EDMS 12:58 Amylase Ordered. EDMS 12:58 Basic Metabolic Profile Ordered. EDMS 12:58 CBC with Diff Ordered. EDMS 12:58 Lipase Ordered. EDMS 12:58 Liver Profile Ordered. EDMS 12:58 Urinalysis Ordered. EDMS 12:58 Hcg, Serum Quantitative Ordered. EDMS 12:58 Urine Culture Ordered. EDMS 13:05 Financial registration complete. lg 13:06 [facility] Payment Agreement was scanned into [employer] and attached to record. lg 14:08 NS 0.9% 500 ml IV at bolus once ordered. dt4 04/19 09:22 T-Sheet-- Draft Copy was scanned into [employer] and attached to record. gb Administered Medications: 04/18 12:47 Drug: NS 0.9% 1000 ml [sodium chloride 0.9 % intravenous solution] Route: IV; Rate: kc3 bolus; Site: right antecubital; 12:57 Drug: Tigan 200 mg [Tigan 100 mg/mL intramuscular solution (2 mL)] Route: IM; Site: jmk right gluteus; 14:35 Drug: NS 0.9% 500 ml Route: IV; Rate: bolus; Site: right antecubital; jmk Signatures: Dispatcher [employer] EDMS Kenya Richard, RAN TONG [facility] Stefany Santana, Reg Reg gb Roberta Farrell, Reg Reg lg Yasmeen Hoff, PA-Juan Manuel PA-C dt4 Marcelina De Los Santos RN RN kc3 Juvenal Olmedo RN The chart was reviewed and I authenticate all verbal orders and agree with the evaluation and treatment provided.Attachments: 13:06 [facility] Payment Agreement lg 04/19 09:22 T-Sheet-- Draft Copy gb Chart Complete MTDD
== END 2016-04-18 15:01 | disposition home or self-care (01) ==
LOC: M ED 12:00
DX: R11.2 Nausea with vomiting, unspecified (principal); R19.7 Diarrhea, unspecified; F41.9 Anxiety disorder, unspecified; F32.9 Major depressive disorder, single episode, unspecified; Z79.3 Long term (current) use of hormonal contraceptives; Z79.899 Other long term (current) drug therapy
CPT/HCPCS: 36415; 80048; 80076; 81001; 82150; 83690; 84702; 85025; 87086; 96372; 99284; J3250

== ENCOUNTER 2016-12-14 10:15 | Emergency (ER) | payer MEDICAID, OTHER ==
[~2016-12-14] VITALS: Ht 167.6 cm; Wt 61.4 kg
[~2016-12-14 10:15] MED LIST changes: +HYDR-3363 PO; -HYDR25T PO
[2016-12-14 10:16] VITALS: BP 133/88
[2016-12-14] MEDS ORDERED: ATIV1TAB10 PO (11:37)
== END 2016-12-14 12:22 | disposition home or self-care (01) ==
LOC: M ED 10:15
DX: F41.9 Anxiety disorder, unspecified (principal); Z87.891 Personal history of nicotine dependence

== ENCOUNTER → 2017-04-16 | Outpatient (REF) | payer OTHER ==
[2017-04-16 14:56] LABS: CHLAMYDIA DNA AMPLIFICATION NEGATIVE (NEGATIVE); GC DNA AMPLIFICATION NEGATIVE (NEGATIVE)
== END ==
LOC: M SFHCWAGY 10:17
DX: Z12.4 Encounter for screening for malignant neoplasm of cervix (principal)

== ENCOUNTER → 2017-05-11 | Outpatient (REF) | payer OTHER | LOC: M SFHCWAGY 13:50 | DX: R87.810 Cervical high risk human papillomavirus (HPV) DNA test positive (principal); R87.612 Low grade squamous intraepithelial lesion on cytologic smear of cervix (LGSIL) ==

== ENCOUNTER → 2017-05-12 | Outpatient (REF) | payer OTHER | LOC: M LAB REF 18:55 | DX: J02.9 Acute pharyngitis, unspecified (principal) ==

== ENCOUNTER → 2017-07-21 | Outpatient (REF) | payer OTHER | LOC: M LAB REF 12:22 | DX: N30.01 Acute cystitis with hematuria (principal) ==

== ENCOUNTER → 2017-07-23 | Outpatient (REF) | payer OTHER ==
[2017-07-23 15:56] LABS: CHLAMYDIA DNA AMPLIFICATION NEGATIVE (NEGATIVE); GC DNA AMPLIFICATION NEGATIVE (NEGATIVE)
== END ==
LOC: M SFHCWAGY 12:57
DX: A60.04 Herpesviral vulvovaginitis (principal); N72 Inflammatory disease of cervix uteri; Z11.3 Encounter for screening for infections with a predominantly sexual mode of transmission; N89.8 Other specified noninflammatory disorders of vagina

== ENCOUNTER → 2018-04-15 | Outpatient (REF) | payer OTHER ==
[~2018-04-15] MED LIST changes: +ATIV1TAB10 PO
== END ==
LOC: M LAB REF 12:12
PROVIDERS: ATTEND Physician Assistant
DX: J02.9 Acute pharyngitis, unspecified (principal)

== ENCOUNTER → 2018-05-17 | Outpatient (REF) | payer OTHER ==
[2018-05-17 19:42] LABS: INFLUENZA A AMPLIFICATION POSITIVE (NEGATIVE); INFLUENZA B AMPLIFICATION NEGATIVE (NEGATIVE)
== END ==
LOC: M LAB REF 18:48
PROVIDERS: ATTEND Physician Assistant Medical
DX: J11.1 Influenza due to unidentified influenza virus with other respiratory manifestations (principal)

== ENCOUNTER → 2018-07-06 | Outpatient (REF) | payer OTHER ==
[2018-07-08 14:14] LABS: HPV HYBRID CAPTURE II Positive (Negative)
== END ==
LOC: M SFHCWAGY 08:42
PROVIDERS: ATTEND Nurse Practitioner Family
DX: R87.610 Atypical squamous cells of undetermined significance on cytologic smear of cervix (ASC-US) (principal)

== ENCOUNTER → 2018-07-30 | Outpatient (REF) | payer OTHER ==
[2018-07-30 14:26] LABS: HEMATOCRIT 38.8 % (36.0-47.0); MEAN CORPUSCULAR HEMOGLOBIN 30.3 pg (27.0-33.0); MEAN CORPUSCULAR HGB CONC 33.5 g/dl (32.0-36.5); MEAN CORPUSCULAR VOLUME 90.4 fl (80.0-96.0); PLATELET COUNT, AUTOMATED 294 10^3/uL (150-450); RED BLOOD COUNT 4.29 10^6/uL (4.00-5.40); WHITE BLOOD COUNT 10.3 10^3/uL (4.0-10.0)
[2018-07-30 14:57] LABS: ALBUMIN 4.5 GM/DL (3.2-5.2); ALT/SGPT 20 U/L (12-78); BILIRUBIN,TOTAL 1.1 MG/DL (0.2-1.0); BLOOD UREA NITROGEN 8 MG/DL (7-18); CALCIUM LEVEL 9.5 MG/DL (8.5-10.1); CARBON DIOXIDE LEVEL 24 MEQ/L (21-32); CHLORIDE LEVEL 106 MEQ/L (98-107); CHOLESTEROL LEVEL 176 MG/DL (<200); CHOLESTEROL RISK RATIO 1.872 (<5); CREATININE FOR GFR 0.93 MG/DL (0.55-1.30); GLOMERULAR FILTRATION RATE > 60.0 (>60); GLUCOSE, FASTING 76 MG/DL (70-100); HDL CHOLESTEROL 94 MG/DL (>40); IRON (FE) 115 UG/DL (50-170); LDL CHOLESTEROL 70 MG/DL (<100); NON-HDL-C 82 MG/DL; PERCENT SATURATION 21.3 % (13.2-45.0); POTASSIUM SERUM 3.4 MEQ/L (3.5-5.1); SODIUM LEVEL 140 MEQ/L (136-145); THYROID STIMULATING HORMONE 0.893 uIU/ML (0.358-3.740); TOTAL 25(OH) VITAMIN D 30.2 NG/ML (30.0-100.0); TOTAL IRON BINDING CAPACITY 540 UG/DL (250-450); TOTAL PROTEIN 7.6 GM/DL (6.4-8.2); TRIGLYCERIDES LEVEL 62 MG/DL (<150)
== END ==
LOC: M LAB REF 12:58
PROVIDERS: ATTEND Physician Assistant
DX: Z00.00 Encounter for general adult medical examination without abnormal findings (principal)

== ENCOUNTER → 2018-08-20 | Outpatient (REF) | payer OTHER | LOC: M SFHCWAGY 10:32 | PROVIDERS: ATTEND Family Medicine | DX: R87.610 Atypical squamous cells of undetermined significance on cytologic smear of cervix (ASC-US) (principal) ==

== ENCOUNTER → 2019-07-13 | Outpatient (REF) | payer OTHER | LOC: M SFHCWAGY 09:51 | PROVIDERS: ATTEND Nurse Practitioner Women's Health | DX: Z12.4 Encounter for screening for malignant neoplasm of cervix (principal); N87.0 Mild cervical dysplasia ==

== ENCOUNTER → 2020-08-14 | Outpatient (REF) | payer OTHER | LOC: M SFHCWAGY 12:51 | PROVIDERS: ATTEND Nurse Practitioner Women's Health | DX: Z12.4 Encounter for screening for malignant neoplasm of cervix (principal) ==

== ENCOUNTER → 2022-09-04 | Outpatient (REF) | payer MEDICAID, OTHER ==
[~2022-09-04] MED LIST changes: +ETON1VAG7 VA; -NUVAMIS2 VA
== END ==
LOC: M SFHCWAGY 13:19
PROVIDERS: ATTEND Nurse Practitioner Family
DX: Z12.4 Encounter for screening for malignant neoplasm of cervix (principal)

== ENCOUNTER → 2022-11-14 | Outpatient (REF) | payer OTHER, MEDICAID ==
[2022-11-14 17:23] LABS: BASO % 1.6 % (0.0-1.0); EOS % 0.4 % (0.0-3.0); HEMATOCRIT 41.2 % (36.0-47.0); HEMOGLOBIN 13.4 g/dl (12.0-15.5); LYMPH # 1.8 10^3/uL (1.5-5.0); LYMPH % 71.3 % (24.0-44.0); MEAN CORPUSCULAR HEMOGLOBIN 30.2 pg (27.0-33.0); MEAN CORPUSCULAR HGB CONC 32.5 g/dl (32.0-36.5); MEAN CORPUSCULAR VOLUME 92.8 fl (80.0-96.0); MONO # 0.5 10^3/uL (0.0-0.8); MONO % 21.5 % (2.0-8.0); NEUTROPHILS % 5.2 % (36.0-66.0); PLATELET COUNT, AUTOMATED 292 10^3/uL (150-450); RED BLOOD COUNT 4.44 10^6/uL (4.00-5.40); WHITE BLOOD COUNT 2.5 10^3/uL (4.0-10.0)
[2022-11-14 17:35] LABS: ALBUMIN 4.3 G/DL (3.2-5.2); ALKALINE PHOSPHATASE 46 U/L (46-116); ALT/SGPT 20 U/L (7.0-40); AST/SGOT 10 U/L (<34); BILIRUBIN,TOTAL 0.6 MG/DL (0.3-1.2); BLOOD UREA NITROGEN 12 MG/DL (9-23); CALCIUM LEVEL 9.6 MG/DL (8.5-10.1); CARBON DIOXIDE LEVEL 26 MMOL/L (20-31); CHLORIDE LEVEL 105 MMOL/L (98-107); CREATININE FOR GFR 0.81 MG/DL (0.55-1.30); GLOMERULAR FILTRATION RATE > 60.0 (>60); GLUCOSE, FASTING 99 MG/DL (60-100); POTASSIUM SERUM 3.8 MMOL/L (3.5-5.1); SODIUM LEVEL 139 MMOL/L (136-145); TOTAL PROTEIN 7.7 G/DL (5.7-8.2)
[2022-11-14 17:39] LABS: FREE T4 1.15 NG/DL (0.89-1.76); THYROID STIMULATING HORMONE 0.553 uIU/ML (0.55-4.78)
[2022-11-14 17:57] LABS: NEUTROPHILS # 0.1 10^3/uL (1.5-8.5)
[2022-11-17 15:07] LABS: EBV VIRAL CAPSID AG IgG >600.0 U/mL (0.0-17.9); EBV VIRAL CAPSID AG IgM <36.0 U/mL (0.0-35.9)
== END ==
LOC: M LAB REF 16:07
PROVIDERS: ATTEND Physician Assistant
DX: J02.9 Acute pharyngitis, unspecified (principal); L04.0 Acute lymphadenitis of face, head and neck; R53.83 Other fatigue

== ENCOUNTER 2022-11-20 11:23 | Emergency (ER) | payer OTHER ==
[~2022-11-20] VITALS: Ht 165.1 cm; Wt 65.9 kg
[2022-11-20 13:27] LABS: BASO # 0.1 10^3/uL (0.0-0.2); BASO % 0.6 % (0.0-1.0); HEMATOCRIT 40.9 % (36.0-47.0); HEMOGLOBIN 13.6 g/dl (12.0-15.5); LYMPH % 23.7 % (24.0-44.0); MEAN CORPUSCULAR HEMOGLOBIN 30.4 pg (27.0-33.0); MEAN CORPUSCULAR HGB CONC 33.3 g/dl (32.0-36.5); MEAN CORPUSCULAR VOLUME 91.5 fl (80.0-96.0); MONO # 0.3 10^3/uL (0.0-0.8); MONO % 3.9 % (2.0-8.0); NEUTROPHILS # 6.1 10^3/uL (1.5-8.5); NEUTROPHILS % 71.3 % (36.0-66.0); PLATELET COUNT, AUTOMATED 327 10^3/uL (150-450); RED BLOOD COUNT 4.47 10^6/uL (4.00-5.40); WHITE BLOOD COUNT 8.5 10^3/uL (4.0-10.0)
[2022-11-20 13:58] LABS: LIPASE 35 U/L (12-53)
[2022-11-20 14:00] LABS: ALBUMIN 4.4 G/DL (3.2-5.2); ALKALINE PHOSPHATASE 43 U/L (46-116); ALT/SGPT 19 U/L (7.0-40); AST/SGOT 14 U/L (<34); BILIRUBIN,DIRECT 0.3 MG/DL (<0.4); BILIRUBIN,TOTAL 0.8 MG/DL (0.3-1.2); BLOOD UREA NITROGEN 10 MG/DL (9-23); CALCIUM LEVEL 9.5 MG/DL (8.5-10.1); CARBON DIOXIDE LEVEL 23 MMOL/L (20-31); CHLORIDE LEVEL 107 MMOL/L (98-107); CREATININE FOR GFR 0.83 MG/DL (0.55-1.30); GLOMERULAR FILTRATION RATE > 60.0 (>60); GLUCOSE, FASTING 93 MG/DL (60-100); POTASSIUM SERUM 3.9 MMOL/L (3.5-5.1); SODIUM LEVEL 140 MMOL/L (136-145); TOTAL PROTEIN 8.2 G/DL (5.7-8.2)
[2022-11-20 14:10] LABS: HCG, SERUM QUALITATIVE NEGATIVE (NEGATIVE)
[2022-11-20] MEDS ORDERED: PEPC1TAB5 PO (16:03)
[2022-11-20] MEDS ORDERED: SIME1CAP3 PO (16:03)
[2022-11-20 16:22] VITALS: BP 125/87; TEMP 98; O2SAT 100
== END 2022-11-20 16:23 | disposition home or self-care (01) ==
LOC: M ED 11:23
DX: R10.12 Left upper quadrant pain (principal); R14.3 Flatulence; F41.9 Anxiety disorder, unspecified; Z79.899 Other long term (current) drug therapy; Z79.3 Long term (current) use of hormonal contraceptives

== ENCOUNTER → 2023-08-12 | Outpatient (REF) | payer OTHER ==
[~2023-08-12] MED LIST changes: +PEPC1TAB5 PO; +SIME1CAP3 PO
[2023-08-12 19:17] LABS: BASO # 0.1 10^3/uL (0.0-0.2); BASO % 0.7 % (0.0-1.0); EOS % 0.4 % (0.0-3.0); HEMATOCRIT 37.3 % (36.0-47.0); HEMOGLOBIN 12.4 g/dl (12.0-15.5); LYMPH # 3.2 10^3/uL (1.5-5.0); LYMPH % 43.8 % (24.0-44.0); MEAN CORPUSCULAR HEMOGLOBIN 30.5 pg (27.0-33.0); MEAN CORPUSCULAR HGB CONC 33.2 g/dl (32.0-36.5); MEAN CORPUSCULAR VOLUME 91.9 fl (80.0-96.0); MONO # 0.4 10^3/uL (0.0-0.8); MONO % 5.7 % (2.0-8.0); NEUTROPHILS # 3.7 10^3/uL (1.5-8.5); NEUTROPHILS % 49.3 % (36.0-66.0); PLATELET COUNT, AUTOMATED 287 10^3/uL (150-450); RED BLOOD COUNT 4.06 10^6/uL (4.00-5.40); WHITE BLOOD COUNT 7.4 10^3/uL (4.0-10.0)
[2023-08-12 19:32] LABS: ALBUMIN 3.6 G/DL (3.2-5.2); ALKALINE PHOSPHATASE 39 U/L (46-116); ALT/SGPT 18 U/L (7.0-40); AST/SGOT 19 U/L (<34); BILIRUBIN,TOTAL 0.8 MG/DL (0.3-1.2); BLOOD UREA NITROGEN 14 MG/DL (9-23); CALCIUM LEVEL 9.1 MG/DL (8.5-10.1); CARBON DIOXIDE LEVEL 25 MMOL/L (20-31); CHLORIDE LEVEL 107 MMOL/L (98-107); CHOLESTEROL LEVEL 163 MG/DL (<200); CHOLESTEROL RISK RATIO 1.73 (<5); CREATININE FOR GFR 0.81 MG/DL (0.55-1.30); GLOMERULAR FILTRATION RATE > 60.0 (>60); GLUCOSE, FASTING 66 MG/DL (60-100); HDL CHOLESTEROL 93.8 MG/DL (>40); LDL CHOLESTEROL 60.6 MG/DL (<100); NON-HDL-C 69.2 MG/DL; POTASSIUM SERUM 4.2 MMOL/L (3.5-5.1); SODIUM LEVEL 140 MMOL/L (136-145); TOTAL PROTEIN 6.8 G/DL (5.7-8.2); TRIGLYCERIDES LEVEL 43 MG/DL (<150)
[2023-08-12 19:38] LABS: THYROID STIMULATING HORMONE 1.645 uIU/ML (0.55-4.78); TOTAL 25(OH) VITAMIN D 30.3 NG/ML (20.0-100.0)
[2023-08-12 20:43] LABS: HEMOGLOBIN A1c 4.9 % (4.0-6.0)
== END ==
LOC: M LAB REF 17:25
PROVIDERS: ATTEND Nurse Practitioner Family
DX: N39.41 Urge incontinence (principal); Z13.220 Encounter for screening for lipoid disorders; Z13.1 Encounter for screening for diabetes mellitus; E55.9 Vitamin D deficiency, unspecified; Z13.29 Encounter for screening for other suspected endocrine disorder

== ENCOUNTER → 2024-01-25 | Outpatient (REF) | payer MEDICAID, OTHER ==
[2024-01-25 17:33] LABS: APPEARANCE, URINE CLEAR (CLEAR); BACTERIA, URINE AUTO NEGATIVE (NEGATIVE); BILIRUBIN, URINE AUTO NEGATIVE (NEGATIVE); BLOOD, URINE BLOOD 2+ (NEGATIVE); COLOR, URINE STRAW (YELLOW); GLUCOSE, URINE (UA) AUTO NEGATIVE (NEGATIVE); KETONE, URINE AUTO NEGATIVE (NEGATIVE); LEUKOCYTE ESTERASE, URINE AUTO NEGATIVE (NEGATIVE); NITRITE, URINE AUTO NEGATIVE (NEGATIVE); PROTEIN, URINE AUTO NEGATIVE (NEGATIVE); RBC, URINE AUTO 0 /HPF (0-3); SPECIFIC GRAVITY URINE AUTO 1.009 (1.002-1.035); SQUAMOUS EPITHELIAL CELL UR AU 0 /HPF (0-6); UROBILINOGEN, URINE AUTO 0.2 mg/dL (0.0-2.0); WBC, URINE AUTO 0 /HPF (0-3)
== END ==
LOC: M SMT 17:00
PROVIDERS: ATTEND Nurse Practitioner Family
DX: N39.41 Urge incontinence (principal)